=== PATIENT | female | born 1990 | race American Indian/Alaskan Native ===

== ENCOUNTER 2018-07-02 00:47 | Emergency (ER) | payer SELFPAY ==
[2018-07-02 01:18] VITALS: BP 127/38
[2018-07-02] MEDS ORDERED: IBUPROFEN PO ONE (01:25)
[2018-07-02] MEDS ORDERED: IBUPROFEN ONE (01:26)
[2018-07-02] MEDS ORDERED: NORCO 5/325 PO STA (03:30)
--- NOTE | 2018-07-02 03:34 | Emergency Department Report ---
ED ENT HPI - General Chief complaint: Dental/Oral Stated complaint: TOOTHACHE Time Seen by Provider: 07/02/18 03:29 Source: patient Mode of arrival: Ambulatory Limitations: No Limitations - History of Present Illness Initial comments: 28-year-old female complaining of recurrent right lower dental pain off unknown due to the molar tooth. She sick and have it treated at the dentist, but they can't see her for the next 3 weeks and she needs some pain relief today. Fourth no fever, chills, sweats, foul order, odynophagia or dysphagia. MD complaint: tooth pain -: Gradual Location: tooth # Severity: moderate Quality: aching Consistency: constant Improves with: none Worsens with: eating Associated Symptoms: toothache. denies: sore throat, tinnitus, hearing loss, discharge from ear, rhinorrhea - Related Data Previous Rx's Medication Instructions Recorded Last Taken Type Amoxicillin 500 mg PO TID #21 capsule 07/02/18 Unknown Rx Chlorhexidine Mouthwash [Peridex] 15 ml MM BID #1 bottle 07/02/18 Unknown Rx Ketorolac [Toradol] 10 mg PO Q6H PRN #10 tablet 07/02/18 Unknown Rx Lidocaine Viscous 2% 5 ml MM Q3H PRN #120 udc 07/02/18 Unknown Rx Allergies Allergy/AdvReac Type Severity Reaction Status Date / Time No Known Allergies Allergy Unverified 11/14/13 16:50 ED Dental HPI - General Chief complaint: Dental/Oral Stated complaint: TOOTHACHE Time Seen by Provider: 07/02/18 03:29 Source: patient Mode of arrival: Ambulatory Limitations: No Limitations - Related Data Previous Rx's Medication Instructions Recorded Last Taken Type Amoxicillin 500 mg PO TID #21 capsule 07/02/18 Unknown Rx Chlorhexidine Mouthwash [Peridex] 15 ml MM BID #1 bottle 07/02/18 Unknown Rx Ketorolac [Toradol] 10 mg PO Q6H PRN #10 tablet 07/02/18 Unknown Rx Lidocaine Viscous 2% 5 ml MM Q3H PRN #120 udc 07/02/18 Unknown Rx Allergies Allergy/AdvReac Type Severity Reaction Status Date / Time No Known Allergies Allergy Unverified 11/14/13 16:50 ED Review of Systems ROS: Stated complaint: TOOTHACHE Other details as noted in HPI Constitutional: denies: chills, fever Eyes: denies: eye pain, eye discharge, vision change ENT: denies: ear pain, throat pain Respiratory: denies: cough, shortness of breath, wheezing Cardiovascular: denies: chest pain, palpitations Endocrine: no symptoms reported Gastrointestinal: denies: abdominal pain, nausea, diarrhea Genitourinary: denies: urgency, dysuria, discharge Musculoskeletal: denies: back pain, joint swelling, arthralgia Skin: denies: rash, lesions Neurological: denies: headache, weakness, paresthesias Psychiatric: denies: anxiety, depression Hematological/Lymphatic: denies: easy bleeding, easy bruising ED Past Medical Hx - Past Medical History Previous Medical History?: No Hx Hypertension: No Hx Diabetes: No Hx Deep Vein Thrombosis: No Hx Renal Disease: No Hx Sickle Cell Disease: No Hx Seizures: No Hx Asthma: No Hx HIV: No - Surgical History Past Surgical History?: Yes Additional Surgical History: - Social History Smoking Status: Never Smoker Substance Use Type: None - Medications Home Medications: Home Medications Medication Instructions Recorded Confirmed Last Taken Type Amoxicillin 500 mg PO TID #21 capsule 07/02/18 Unknown Rx Chlorhexidine Mouthwash [Peridex] 15 ml MM BID #1 bottle 07/02/18 Unknown Rx Ketorolac [Toradol] 10 mg PO Q6H PRN #10 tablet 07/02/18 Unknown Rx Lidocaine Viscous 2% 5 ml MM Q3H PRN #120 udc 07/02/18 Unknown Rx ED Physical Exam - General Limitations: No Limitations General appearance: alert, in no apparent distress - Head Head exam: Present: atraumatic, normocephalic - Eye Eye exam: Present: normal appearance, PERRL, EOMI, scleral icterus - ENT ENT exam: Present: mucous membranes moist, other (of a few dental caries noted to #2 is impacting tooth #31 fractures noted. There is mild adjacent gingival erythema, no abscess formation. Tongue and uvula are midline and normal size. No drooling.) - Neck Neck exam: Present: normal inspection, full ROM - Respiratory Respiratory exam: Present: normal lung sounds bilaterally. Absent: respiratory distress, wheezes, rales - Cardiovascular Cardiovascular Exam: Present: regular rate, normal rhythm. Absent: systolic murmur, diastolic murmur, rubs, gallop - GI/Abdominal GI/Abdominal exam: Present: soft, normal bowel sounds - Extremities Exam Extremities exam: Present: normal inspection - Back Exam Back exam: Present: normal inspection - Neurological Exam Neurological exam: Present: alert, oriented X3 - Psychiatric Psychiatric exam: Present: normal affect, normal mood - Skin Skin exam: Present: warm, dry, intact, normal color. Absent: rash ED Course Vital Signs 07/02/18 01:11 Temperature 98.7 F Pulse Rate 83 Respiratory 16 Rate Blood Pressure 127/38 O2 Sat by Pulse 98 Oximetry Critical care attestation.: If time is entered above; I have spent that time in minutes in the direct care of this critically ill patient, excluding procedure time. ED Disposition Clinical Impression: Dentalgia Disposition: TO HOME OR SELFCARE Is pt being admited?: No Does the pt Need Aspirin: No Condition: Stable Instructions: Dental Caries (ED), Toothache (ED) Prescriptions: Amoxicillin 500 mg PO TID #21 capsule Chlorhexidine Mouthwash [Peridex] 15 ml MM BID #1 bottle Ketorolac [Toradol] 10 mg PO Q6H PRN #10 tablet PRN Reason: Pain Lidocaine Viscous 2% 5 ml MM Q3H PRN #120 udc PRN Reason: Pain, Moderate (4-6) Referrals: CHELSIE PENA MD [Primary Care Provider] - 3-5 Days
[2018-07-02] MEDS ORDERED: TYLENOL PO ONE (04:00)
[2018-07-02] MEDS ORDERED: LIDOCAINE VISCOUS 2% ONE (04:00)
[2018-07-02] MEDS ORDERED: TYLENOL ONE (04:00)
[2018-07-02] MEDS ORDERED: LIDOCAINE VISCOUS 2% PO ONE (04:00)
== END 2018-07-02 04:19 | disposition home or self-care (01) ==
LOC: ED 00:47
DX: K08.89 Other specified disorders of teeth and supporting structures (principal)
CPT/HCPCS: 99282

== ENCOUNTER 2019-06-16 03:05 | Outpatient (CLI) | payer MEDICAID ==
[2019-06-16 03:19] VITALS: BP 110/59
[2019-06-16] MEDS ORDERED: LACTATED RINGERS 500 ML IV ONE (03:54)
[2019-06-16] MEDS ORDERED: ACETAMINOPHEN 500 MG TAB ONE (04:08)
[2019-06-16] MEDS ORDERED: ACETAMINOPHEN 500 MG TAB PO ONE (04:08)
== END 2019-06-16 05:12 | disposition home or self-care (01) ==
LOC: TRG 03:05
PROVIDERS: ATTEND Obstetrics & Gynecology
DX: O26.892 Other specified pregnancy related conditions, second trimester (principal); M54.9 Dorsalgia, unspecified; Z3A.26 26 weeks gestation of pregnancy
CPT/HCPCS: 96360; J7120